=== PATIENT | female | born 1990 | race Caucasian/White ===

== ENCOUNTER → 2017-02-16 | Outpatient (CLI) | payer OTHER ==
--- NOTE | 2017-02-16 14:33 | RADIOLOGY REPORT PS360 ---
CHEST(2 VIEWS-NOT PORTABLE) HISTORY: PNEUMONIA, cough and congestion ORDERING PHYSICIAN: Jacklyn Tiwari APRN PATIENT AGE: 26 years COMPARISON: None available FINDINGS: The cardiomediastinal silhouette and pulmonary vascularity are within normal limits. There is patchy increased density in the right upper lobe which is developed since previous exam consistent with right upper lobe pneumonia. There is some mild prominence of the right hilum which may be due to mildly enlarged lymph nodes. Mild bronchial thickening noted on the left. No acute bony anomalies. IMPRESSION: Right upper lobe pneumonia with mild right hilar adenopathy
== END ==
LOC: RAD 13:03
DX: J18.9 Pneumonia, unspecified organism (principal)

== ENCOUNTER → 2017-02-23 | Outpatient (CLI) | payer OTHER ==
--- NOTE | 2017-02-23 11:12 | RADIOLOGY REPORT PS360 ---
CHEST(2 VIEWS-NOT PORTABLE) HISTORY: PNEUMONIA, follow-up pneumonia ORDERING PHYSICIAN: Jacklyn Tiwari APRN PATIENT AGE: 26 years COMPARISON: 02/16/2017 FINDINGS: The cardiomediastinal silhouette and pulmonary vascularity are within normal limits. The lungs are clear without infiltrates, suspicious nodules, or pleural effusions. No acute bony abnormalities. Right upper lobe infiltrate has improved since a previous exam. The right hilum appears somewhat less apparent IMPRESSION: Resolved right upper lobe pneumonia.
== END ==
LOC: RAD 10:42
DX: J18.9 Pneumonia, unspecified organism (principal)